=== PATIENT | male | born 1960 | race Asian ===

== ENCOUNTER 2024-11-21 11:33 | Emergency (ER) | payer BC ==
[2024-11-21 11:44] VITALS: BP 118/77; PULSE 88; RESP 20; TEMP 98; BMI 26.6
== END 2024-11-21 14:24 | disposition short-term general hospital (02) ==
LOC: JER 11:33 → JERFT 11:33
DX: L53.9 Erythematous condition, unspecified (principal); H57.11 Ocular pain, right eye
CPT/HCPCS: 99283-25; 99285-25